=== PATIENT | female | born 1945 | race Caucasian/White ===

== ENCOUNTER 2020-07-14 14:48 | Inpatient (IN) ==
[2020-07-14] MEDS ORDERED: Mag Hydrox/Al Hydrox/Simeth 30 ML UDC PO PRN (18:57)
[2020-07-14] MEDS ORDERED: Acetaminophen 325 MG TABLET PO PRN (18:57)
[2020-07-14] MEDS ORDERED: Ondansetron 4 MG/2 ML VIAL IVP PRN (18:57)
[2020-07-14] MEDS ORDERED: Naloxone 0.4 MG/ML INJ IVP PRN (18:57)
[2020-07-14] MEDS ORDERED: MOM Conc 10 ML UD.LIQ PO PRN (18:57)
[2020-07-14] MEDS: Cefdinir 300 MG CAPSULE PO SCH (21:13)
[2020-07-15 07:10] LABS: Basophils # 0.1 K/mcL (0.0-0.2); Basophils % 0.4 %; Eosinophils # 0.1 K/mcL (0.0-0.6); Eosinophils % 0.4 %; Hematocrit 41.6 % (35.3-44.9); Hemoglobin 13.6 g/dL (11.5-15.4); Immature Granulocytes % 3.4 % (0-4); Lymphocytes % 25.6 %; Mean Corpuscular HGB Conc 32.7 g/dL (31.6-35.5); Mean Corpuscular Hemoglobin 28.2 pg (28.0-33.3); Mean Corpuscular Volume 86.1 fL (83.0-100.0); Mean Platelet Volume 9.3 fL (9.4-12.4); Monocytes # 0.9 K/mcL (0.0-1.3); Monocytes % 7.9 %; Neutrophils # 7.2 K/mcL (1.6-8.9); Platelet Count 458 K/mcL (140-400); Red Blood Count 4.83 M/mcL (3.82-4.97); Red Cell Distribution Width 12.8 % (11.5-14.5); Segmented Neutrophils % 62.3 %; White Blood Count 11.6 K/mcL (4.3-11.1)
[2020-07-15 07:29] LABS: Calcium 8.8 mg/dL (8.6-10.3); Potassium 4.3 mEq/L (3.5-5.1)
[2020-07-15] MEDS: Azithromycin 250 MG TABLET PO SCH (08:32)
[2020-07-15] MEDS: Cefdinir 300 MG CAPSULE PO SCH ×2 (08:32→20:00)
[2020-07-15] MEDS: Aspirin Enteric Coated 81 MG Tablet PO SCH (08:33)
[2020-07-15] MEDS ORDERED: Valsartan 160 MG TABLET PO SCH (09:00)
[2020-07-15] MEDS ORDERED: hydroCHLOROthiazide 25 MG TABLET PO SCH (09:00)
[2020-07-15 09:14] LABS: Ferritin 641 ng/mL (10-120)
[2020-07-15 10:10] LABS: C-Reactive Protein 12 mg/L (Less than 10)
[2020-07-15] MEDS: dexAMETHasone 4 MG TABLET PO SCH (10:57)
[2020-07-16 06:39] LABS: Basophils % 0.2 %; Eosinophils % 0.3 %; Hematocrit 39.6 % (35.3-44.9); Hemoglobin 12.8 g/dL (11.5-15.4); Immature Granulocytes % 1.7 % (0-4); Lymphocytes # 2.9 K/mcL (0.6-4.6); Lymphocytes % 22.4 %; Mean Corpuscular HGB Conc 32.3 g/dL (31.6-35.5); Mean Corpuscular Hemoglobin 28.3 pg (28.0-33.3); Mean Corpuscular Volume 87.6 fL (83.0-100.0); Mean Platelet Volume 9.3 fL (9.4-12.4); Monocytes % 7.7 %; Neutrophils # 8.7 K/mcL (1.6-8.9); Platelet Count 414 K/mcL (140-400); Red Blood Count 4.52 M/mcL (3.82-4.97); Red Cell Distribution Width 13.2 % (11.5-14.5); Segmented Neutrophils % 67.7 %; White Blood Count 12.9 K/mcL (4.3-11.1)
[2020-07-16 07:30] LABS: Calcium 8.7 mg/dL (8.6-10.3); Potassium 4.7 mEq/L (3.5-5.1)
[2020-07-16] MEDS: Cefdinir 300 MG CAPSULE PO SCH (08:50)
[2020-07-16] MEDS: Azithromycin 250 MG TABLET PO SCH (08:50)
[2020-07-16] MEDS: Aspirin Enteric Coated 81 MG Tablet PO SCH (08:51)
[2020-07-16] MEDS: dexAMETHasone 4 MG TABLET PO SCH (08:51)
[2020-07-17] MEDS ORDERED: Cefdinir 300 MG CAPSULE PO SCH (09:00)
[2020-07-17] MEDS: dexAMETHasone 4 MG TABLET PO SCH (10:15)
[2020-07-17] MEDS: Aspirin Enteric Coated 81 MG Tablet PO SCH (10:16)
[2020-07-18 06:16] LABS: Hematocrit 41.4 % (35.3-44.9); Hemoglobin 12.6 g/dL (11.5-15.4); Mean Corpuscular HGB Conc 30.4 g/dL (31.6-35.5); Mean Corpuscular Hemoglobin 28.5 pg (28.0-33.3); Mean Corpuscular Volume 93.7 fL (83.0-100.0); Mean Platelet Volume 10.2 fL (9.4-12.4); Platelet Count 319 K/mcL (140-400); Red Blood Count 4.42 M/mcL (3.82-4.97); Red Cell Distribution Width 13.2 % (11.5-14.5); White Blood Count 12.7 K/mcL (4.3-11.1)
[2020-07-18 06:24] LABS: BUN/Creatinine Ratio 46 (6-26); Blood Urea Nitrogen 46 mg/dL (8-23); Calcium 8.7 mg/dL (8.6-10.3); Carbon Dioxide 20 mEq/L (23-29); Chloride 106 mEq/L (98-107); Glucose 139 mg/dL (70-105); Osmolality,Calculated 294 (280-300); Potassium 4.6 mEq/L (3.5-5.1); Sodium 135 mEq/L (136-145); eGFR For African Americans > 60 (> 60); eGFR For Non-African Americans 54 (> 60)
[2020-07-18 07:36] VITALS: BP 133/75
[2020-07-18] MEDS: dexAMETHasone 4 MG TABLET PO SCH (09:10)
[2020-07-18] MEDS: Aspirin Enteric Coated 81 MG Tablet PO SCH (09:10)
== END 2020-07-18 10:08 | disposition home or self-care (01) | DRG 177 ==
LOC: INPPIK 17:53
PROVIDERS: ADMIT Family Medicine; ATTEND Family Medicine